=== PATIENT | female | born 1940 | race Caucasian/White ===

== ENCOUNTER 2017-12-15 10:46 | Outpatient (CLI) | payer MEDICARE, OTHER ==
[~2017-12-15 10:46] MED LIST: ALEN70TA48 PO; ATOR20TA PO; CITA20TA11 PO; DICY10CA59 PO; DIL100C PO; METF500T PO; OMEP-84 PO; TEG100T PO; ZOLP5TAB8 PO
[2017-12-15] MEDS ORDERED: gadopentetate dimeglumine 7.5 MMOL/15 ML syringe ONE (18:25)
== END 2017-12-15 23:59 | disposition home or self-care (01) ==
LOC: RAD 10:46
PROVIDERS: ATTEND Neurological Surgery
DX: G31.89 Other specified degenerative diseases of nervous system (principal); D33.3 Benign neoplasm of cranial nerves; I10 Essential (primary) hypertension; E11.9 Type 2 diabetes mellitus without complications; Z87.891 Personal history of nicotine dependence
CPT/HCPCS: 70553; A9579